=== PATIENT | female | born 1970 | race Caucasian/White ===

== ENCOUNTER → 2016-05-08 | Outpatient (CLI) | payer OTHER ==
[~2016-05-08] MED LIST: ARGI500C2 PO; CELE200C PO; DIPH25CA58 PO; GLUC1TAB26 PO; IOHEXOL 180 MG/ML 10 ML VIAL. ONE; PROT420P PO; PSEU120T46 PO; [UNRECOGNIZED DRUG - OTHER]; methylPREDNISolone ACETATE 40 MG/ML VIAL. ONE; methylPREDNISolone ACETATE 80 MG/ML VIAL. ONE
--- NOTE | 2016-05-09 01:28 | PAIN ---
DATE OF SERVICE: 05/08/2016 DIAGNOSES: Lumbar degenerative disk disease with low back pain and lumbar spondylosis. HISTORY OF PRESENT ILLNESS: The patient is a 45-year-old female who returns for followup status post initial evaluation and preauthorization for lumbar epidural steroid injection. The patient returns now with preauthorization. She complains still of pain in the low back bilaterally across the low back and radiating up in the mid back as well as to some extent. The patient reports it is 3-4 on a scale of 10, it is aching, dull, ____ also with some sharp and spastic sensations, occasional shooting into the lower extremities, but mostly in the back itself. The patient reports it is worse with standing and walking, activity, changing positions. No significant change since previous exam and previous visit. The patient reports no bowel or bladder incontinence, no new deficits of any other kind. PHYSICAL EXAMINATION: VITAL SIGNS: Today, the patient's blood pressure is 126/82, pulse 75, respirations 18, temperature 98.5 degrees Fahrenheit, weight is 202 pounds. GENERAL: The patient is awake, alert, oriented, appropriate, very pleasant demeanor. HEENT: Shows normocephalic, atraumatic. Extraocular movements are intact and symmetrical. Oral cavity shows mucous membranes are moist and pink. Dentition is intact. NECK: Shows anterior throat supple without palpable lymphadenopathy noted. Swallow reflex is symmetrical. Neck shows full rotation and motion of cervical spine without tenderness or difficulty. CHEST: Shows normal on inspection. Breath sounds are clear to auscultation bilaterally. HEART: Shows S1 and S2 clear. ABDOMEN: Soft, nontender, nondistended. No palpable organomegaly is noted. BACK: Shows spine grossly in midline. Lumbar paraspinous musculature shows some moderate tenderness with palpation, very firm musculature throughout the upper, middle and lower distribution of paraspinous muscles, but without radiation. No trigger points. The patient shows good rotation and motion both laterally as well as extension and flexion of lumbar spine without difficulty. EXTREMITIES: Lower extremities show deep tendon reflexes 2+ in the patellar, 1+ tendo calcaneus tendons. Motor exam is strong with 5/5 dorsiflexion, extension, quadriceps and hamstring flexion and equal. Options were discussed with the patient. At this time, we will proceed with a lumbar epidural steroid injection with fluoroscopic guidance. Risks were again discussed including, but not limited to bleeding, infection, possibility of epidural hematoma and subsequent neurological compromise, dural puncture, headaches, spinal cord and/or nerve damage, side effects of steroid medication and poor results regarding pain control. The patient understands and wishes to proceed. The patient will return to the clinic in approximately 2 weeks for followup. She was counseled on return appointment, activity level and side effects to be aware of. DIAGNOSIS: Lumbar degenerative disk disease with lumbar spondylosis and low back pain. PROCEDURE: Lumbar epidural steroid injection in translaminar approach at the L4-L5 level under sterile prep and drape using local anesthetic. Medications injected 120 mg of Depo-Medrol plus 10 mL of preservative-free normal saline and 2 mL of Isovue for contrast. Condition at discharge is stable. The patient tolerated the procedure well, had no complications. KATHRYN WELCH MD DR: NALDO/yanna JOB#: [id number] / [id number]
== END ==
LOC: PNCL 13:07
PROVIDERS: ATTEND Anesthesiology
DX: M51.36 Other intervertebral disc degeneration, lumbar region (principal); M47.816 Spondylosis without myelopathy or radiculopathy, lumbar region
CPT/HCPCS: 62323; J1030; J1040

== ENCOUNTER → 2016-06-10 | Outpatient (CLI) | payer OTHER ==
--- NOTE | 2016-06-11 13:19 | PAIN ---
DATE OF SERVICE: 06/10/2016 PROGRESS NOTE FOR PAIN CLINIC DIAGNOSES: Low back pain with lumbar degenerative disk disease and lumbar spondylosis. HISTORY OF PRESENT ILLNESS: The patient is a 45-year-old male who returns for followup status post lumbar epidural steroid injection x 1 on 05/08/2016. The patient did well, reports about 50% improvement for about 3 weeks after the injection. The patient reports the pain is returning now in the low back bilaterally, but he was doing much better with the ability to increase activity with greater ease and comfort. He was then ____ assignment and has returned now here with increase in pain about the past week or so. The patient reports it is about a 4 on a scale of 10 across the low back bilaterally. The left equal right and rates it a 4 on a scale of 10. The patient reports no new motor or sensory deficits, no new bowel or bladder incontinence or other complaints. PHYSICAL EXAMINATION: VITAL SIGNS: The patient's blood pressure 132/76, pulse 80, respirations 18, temperature 98.0 degrees Fahrenheit, weight is 204 pounds. GENERAL: The patient is awake, alert, oriented, appropriate, very pleasant demeanor. HEENT: Head shows normocephalic, atraumatic. Extraocular movements are intact, symmetrical. Oral cavity, mucous membranes are moist and pink. Dentition is intact. NECK: Shows anterior throat supple without palpable lymphadenopathy noted. Swallow reflex is symmetrical. CHEST: Shows normal on inspection. Breath sounds clear to auscultation bilaterally. HEART: Shows S1 and S2 clear. ABDOMEN: Soft, nontender, nondistended. BACK: Shows spine grossly midline. Normal appearing lumbar lordotic curvature. Lumbar paraspinous muscle shows some moderate tenderness with palpation, but without atrophy, hypertrophy or radiation. The patient has good rotational motion both laterally as well as extension and flexion of lumbar spine without difficulty or pain reported. EXTREMITIES: Lower extremities show deep tendon reflexes at 2+ in the patellar, 1+ tendo calcaneus tendons. Motor exam is strong with 5/5 dorsiflexion, extension, quadriceps and hamstring flexion and symmetrical. Options were discussed with the patient. We will proceed with a second lumbar epidural steroid injection today with fluoroscopic guidance. The patient's old chart was reviewed and his current medication regimen updated. Current review of systems updated today as well. Risks were discussed including but not limited to bleeding, infection, possibility of epidural hematoma, subsequent neurologic compromise, dural puncture, headaches, spinal cord and/or nerve damage, side effects of steroid medication and poor results regarding pain control. The patient understands and wishes to proceed. The patient will return to clinic in approximately 2 weeks for followup. He was counseled as to return appointment, activity level and side effects to be aware of. DIAGNOSIS: Lumbar degenerative disk disease, lumbar spondylosis and low back pain. PROCEDURES: Lumbar epidural steroid injection using C-arm fluoroscopic guidance, a translaminar approach at the L4-L5 level using local anesthetic under sterile prep and drape. MEDICATIONS INJECTED: 120 mg Depo-Medrol plus 10 mL of preservative free normal saline and 2 mL of Isovue for contrast. CONDITION AT DISCHARGE: Stable. The patient tolerated procedure well, had no complications. KATHRYN WELCH MD DR: NALDO/yanna JOB#: [id number] / [id number]
== END | disposition home or self-care (01) ==
LOC: PNCL 13:17 → EDSEX 13:20
PROVIDERS: ATTEND Anesthesiology
DX: M51.36 Other intervertebral disc degeneration, lumbar region (principal); M47.9 Spondylosis, unspecified
CPT/HCPCS: 62323; J1030; J1040

== ENCOUNTER → 2016-08-06 | Outpatient (CLI) | payer OTHER ==
--- NOTE | 2016-08-07 04:54 | PAIN ---
DATE OF SERVICE: 08/06/2016 PROGRESS NOTE FOR PAIN CLINIC DIAGNOSES: Lumbar degenerative disease with low back pain and lumbar spondylosis. HISTORY OF PRESENT ILLNESS: The patient is a 45-year-old male, who returns for followup status post lumbar epidural steroid injections x 2, last seen on 06/10/2016. The patient did very well about 50% improvement in the low back and leg pain that he was having. The patient reports no new motor or sensory deficits, no new bowel or bladder incontinence or other complaints, but still having some pain across the low back, right equal to left, essentially without the significant radiation in the leg at this time. The patient reports increased with activity, standing, walking, changing positions, but is doing better with lying down or sitting down, has been sleeping well to the night and without significant limitation is activity. PHYSICAL EXAMINATION: VITAL SIGNS: Today, the patient's blood pressure is 130/87, pulse 77, respirations are 16, temperature is 98.3 degrees Fahrenheit, weight is 204 pounds. GENERAL: The patient is awake, alert, oriented, appropriate, very pleasant demeanor. HEENT: Head shows normocephalic, atraumatic. Extraocular movements are intact and symmetrical. Oral cavity shows mucous membranes moist and pink. Dentition is intact. NECK: Shows anterior throat supple without palpable lymphadenopathy noted. Swallow reflex is symmetrical. CHEST: Shows normal on inspection. Breath sounds clear to auscultation bilaterally. HEART: Shows S1 and S2 clear. ABDOMEN: Soft, nontender, nondistended. No palpable organomegaly. No rebound or guarding demonstrated. BACK: Shows spine grossly midline. Normal appearing thoracic and lumbar curvatures lumbar paraspinous muscle shows some moderate tenderness with palpation, but only deep palpation in the lower lumbar distribution and mid lumbar distribution, but without radiation. Muscle girth shows normal as firm and symmetrical. The patient has good rotational motion of lumbar spine, both laterally as well as extension and flexion without difficulty. LOWER EXTREMITIES: Showed deep tendon reflexes at 2+ in the patellar, 1+ tendo-calcaneus tendons are equal. Motor exam is strong with 5/5 dorsiflexion, extension, quadriceps and hamstring flexion, but is symmetrical. Options were discussed with the patient and the patient's old chart was reviewed. His current medication regimen updated. Current review of systems updated today as well. We will proceed with a third in the series of lumbar epidural steroid injection with fluoroscopic guidance. Risks were again discussed including, but not limited to bleeding, infection, possibility of epidural hematoma, subsequent neurologic compromise, dural puncture, headaches, spinal cord and/or nerve damage, side effects of steroid medication and poor results regarding pain control. The patient understands and wishes to proceed. The patient will return to clinic in approximately 2 weeks for followup. He was counseled as to return appointment, activity level and side effects to be aware of. KATHRYN WELCH MD DR: NALDO/yanna JOB#: [id number] / [id number]
== END | disposition home or self-care (01) ==
LOC: PNCL 12:59
PROVIDERS: ATTEND Anesthesiology
DX: M51.16 Intervertebral disc disorders with radiculopathy, lumbar region (principal); M47.26 Other spondylosis with radiculopathy, lumbar region
CPT/HCPCS: 62323; J1030; J1040